=== PATIENT | male | born 1985 | race Caucasian/White ===

== ENCOUNTER 2024-08-24 04:11 | Inpatient (IN) | payer OTHER, SELFPAY ==
[2024-08-23 23:44] VITALS: BP 157/107
--- NOTE | 2024-08-24 01:36 | ED.GENMED ---
History of Present Illness
General
Chief Complaint: Skin Problem
Source: patient
Exam Limitations: none
Time Seen by Provider: 08/24/24 01:27
History of Present Illness
History of Present Illness:
See MDM
Past History
Past History
ED Past Medical History: Asthma
ED Past Surgical History: None
Social History
Tobacco: Non-smoker
Drug: IVDA (Former)
Phy Exam
Physical Exam
Physical Exam:
See MDM
Sepsis
Sepsis Screening
Sepsis Assessment: Sepsis Ruled Out
Sepsis Screen
Sepsis Screen: Sepsis Ruled Out
Date: 08/24/24
Time: 02:05
Course
Orders/Labs/Results
Orders:
Orders
08/23/24 23:50
IV Insert/Care/Rem.- Treatment PRN
Complete Blood Count/With Diff Urgent
Comprehensive Metabolic Panel Urgent
Lactic Acid Q4H
Comment: ON ICE, CANCEL 2ND ORDER IF FIRST LACTIC ACID LEVEL <2
Blood Culture Urgent
SUZANNE Source: Blood/Venous
Specimen Description:
08/23/24 23:51
Blood Culture Urgent
SUZANNE Source: Blood/Venous
Specimen Description:
08/24/24 01:34
Diphenhydramine [Benadryl] 25 mg IV NOW STA
Ketorolac [Toradol] 30 mg IV NOW STA
Piperacillin/Tazo 3.375 Gram [Zosyn] 3.375 gram in 50 ml IV NOW
08/24/24 01:35
Vancomycin [Vancocin] 2,000 mg 0.9% Sodium Chloride 500 ml [Nss] 500 ml IV NOW
08/24/24 03:50
Lactic Acid Q4H
Comment: ON ICE, CANCEL 2ND ORDER IF FIRST LACTIC ACID LEVEL <2
Abnormal Lab Results
08/24/24
01:35
WBC 11.0 H 10^3/uL
(4.8-10.8)
RBC 4.38 L 10^6/uL
(4.70-6.10)
Hgb 11.1 L g/dL
(13.0-18.0)
Hct 34.8 L %
(39.0-52.0)
MCV 79.5 L fL
(80.0-94.0)
MCH 25.3 L pg
(27.0-31.0)
MCHC 31.9 L g/dL
(33.0-37.0)
RDW 16.5 H %
(11.5-14.5)
Absolute Neuts (auto) 7.6 H 10^3/uL
(1.4-6.5)
Absolute Monos (auto) 1.1 H 10^3/uL
(0.1-0.6)
Lymphocytes % 17.5 L %
(20.5-51.1)
Monocytes % 10.3 H %
(1.7-9.3)
Glucose 104 H mg/dl
(70-99)
08/24/24 01:35
08/24/24 01:35
Vital Signs
Initial and Last Documented VS:
Initial Vital Signs
Temp Pulse Resp BP Pulse Ox
99.0 F 79 17 157/107 97
08/23/24 23:44 08/23/24 23:44 08/23/24 23:44 08/23/24 23:44 08/23/24 23:44
Last Documented Vital Signs
Temp Pulse Resp BP Pulse Ox
99.0 F 79 17 157/107 97
08/23/24 23:44 08/23/24 23:44 08/23/24 23:44 08/23/24 23:44 08/23/24 23:44
MDM/Problems Addressed
Differential Diagnosis Includes:
HPI and MDM Narrative:
38-year-old male presenting with right hand wound. Patient has a history of a somewhat chronic wound to his right hand from prior IV drug use. He states he has been dealing with bilateral swelling hands from lymphedema due to vascular
insufficiency related to his prior drug use. Over the past few days, the wound to his right hand has gotten significantly worse and painful.
On his exam, he does have enlarged hands consistent with his lymphedema. He has a large wound over the dorsum of his right hand and wrist
Given his drug history with the current state of his wound, will start vancomycin and Zosyn. Will give Toradol for pain and will avoid narcotics.
Physical exam
General: Mildly uncomfortable
HEENT: protecting airway
Neck: appears supple
CV: No evidence of cyanosis
Resp: No accessory muscle use
Abd: Non-distended
Extremities: Bilateral edematous hands. Large wound to the dorsal aspect of right wrist and right hand
Neuro: alert
Psych: Normal affect
Skin: Intact
Problems Addressed including Acute and Chronic Conditions affecting care:
1. Right hand wound
Acuity: acute
Prognosis: unstable
Details: Given his history, will start vancomycin and Zosyn.
Updates
Given the worsening hand wounds, will admit
Differential Diagnosis (but not limited to): Osteomyelitis, necrotic wound
Testing considered: X-ray
Drug therapy (if applicable): OTC meds, please see d/c instruction regarding Rx drugs
Amount and/or Complexity of Data Reviewed
Clinical info obtained from: Patient
External data reviewed: N/A
Labs I independently reviewed (but not limited to): Leukocytosis
Radiology: N/A
Pulse Ox: not hypoxic
EKG independently reviewed: N/A
Rose Grower: N/A
Critical Care: N/A
Risk of Complication:
Social Determinants of health: Good social support
Discussed with other providers: Hospitalist
Escalation of Care includes Admit/Obs: Given the significance of the hand wound, will admit
Occasional wrong word or 'sound a like' substitutions may have occurred due to the inherent limitations of voice recognition software. Read the chart carefully and recognize, using context, where substitutions have occurred.
*Critical Care Note
Total Time (30-74mins, 75-104mins- exclusive of procedures): Not Applicable
ED Attending Note
-
Portions of this chart may have been created with voice recognition software.� Occasional wrong word or��sound alike� substitutions may have occurred due to the inherent limitations of voice recognition software.
Discharge Plan
Departure
Patient Disposition: Admit
Date of Disposition: 08/24/24
Time of Disposition: 02:05
Admit to: Med/Surg
Presentation/result/management discussed w/ accepting MD/DO: Hospitalist
Discharge Problem:
Open wound, hand
Referrals:
NONE,* [Family Provider] -
Interventions
Interventions:
*Risk Screen - Suicide Last Done: 08/23/24 23:44
*General Assessment Last Done: 08/24/24 01:38
*Neglect/Abuse Screening Last Done: 08/24/24 01:38
*ED COVID-19 Vaccine History Last Done: 08/24/24 01:38
Discharge Date and Time
Print Language: KINYARWANDA
[2024-08-24 01:37] VITALS: BMI 24.7
[2024-08-24] MEDS: TORADOL 30 MG IV (01:44)
[2024-08-24 01:50] LABS: % Basophils 0.4 % (0-2); % Eosinophils 2.6 % (0-6); % Immature Granulocytes 0.3 % (0-0.5); % Lymphocytes 17.5 % (20.5-51.1); % Monocytes 10.3 % (1.7-9.3); % Neutrophils 68.9 % (42.2-75.2); Absolute Eosinophils 0.3 10^3/uL (0-0.7); Absolute Lymphocytes 1.9 10^3/uL (1.2-3.4); Absolute Monocytes 1.1 10^3/uL (0.1-0.6); Absolute Neutrophils 7.6 10^3/uL (1.4-6.5); Hematocrit 34.8 % (39.0-52.0); Hemoglobin 11.1 g/dL (13.0-18.0); Mean Corp Hgb Conc. 31.9 g/dL (33.0-37.0); Mean Corpuscular Hgb 25.3 pg (27.0-31.0); Mean Corpuscular Volume 79.5 fL (80.0-94.0); Nucleated Red Blood Cells % 0 % (-); Platelet Count 266 10^3/uL (130-400); Red Blood Cell Count 4.38 10^6/uL (4.70-6.10); Red Cell Dist. Width 16.5 % (11.5-14.5)
[2024-08-24 02:00] LABS: ALT (SGPT) 29 U/L (0-50); AST (SGOT) 30 U/L (17-59); Albumin 4.1 g/dl (3.5-5.0); Alkaline Phosphatase 93 U/L (38-126); Blood Urea Nitrogen 11 mg/dl (9-20); Calcium 8.8 mg/dl (8.4-10.2); Carbon Dioxide 26 mmol/L (22-30); Chloride 100 mmol/L (98-107); Estimated Creatinine Clearance 110 ml/min; Glucose 104 mg/dl (70-99); Sodium 136 mmol/L (135-145); Total Bilirubin 0.6 mg/dl (0.2-1.3); Total Protein 7.1 g/dl (6.3-8.2); eGFR > 60.00
[2024-08-24 02:01] LABS: Lactic Acid 0.9 mmol/L (0.7-2.0)
--- NOTE | 2024-08-24 02:18 | HPS.HSE ---
Family Physician
-
Family Physician: * NONE
Chief Complaint
-
Right hand swelling redness and pain
History of Present Illness
This is a 38-year-old with past medical history of IV drug use who reports he is currently off IV drugs and on methadone presents with acute episode of right hand swelling pain and erythema over the last 2 days.
Patient has history of IV drug use and has vascular insufficiency in the upper and lower extremities with chronic bilateral hand swelling which is currently treated with compression gloves. He reports prior ultrasounds negative for DVT in his
bilateral upper and lower extremities. He reports a chronic right upper extremity nonhealing wound which she has been at wound care clinic for blood did not continue. He performs his own dressings to take care of this wound. He also reports cyst
in the palm of his right hand that has been present for years. He stated that 2 days ago or over the sister ruptured internally. There was no open wound. Since then he has had more swelling erythema and pain in that hand. He denies having any
fevers. He denies any chills.
He denies any prior history of bloodstream infections.
Patient denies any external trauma, injuries, foreign body or animal bites.
In the emergency department he was afebrile, blood pressure was 137/100 with a pulse of 79 and was satting 97% on room air.
WBC was 11, hemoglobin 11 and platelet 266. Electrolytes BUN/creatinine were all within the normal range. Glucose was normal.
Medical History
Past Medical History
Past Medical History: Reports Other (History of IV drug use, bilateral upper and lower extremity venous insufficiency with chronic swelling)
Past Surgical History: Reports None
Social History
Tobacco: Smoker
Alcohol: None
Drug: Former User and IVDA
Personal: Single
Living: With Family
Family History
Family History: Not pertinent
Allergies / Home Medications
Allergies reflects when Allergies were last updated in [employer].
Home Medications with original date entered in [employer]
Allergy/Medication List:
Allergies
Allergy/AdvReac Type Severity Reaction Status Date / Time
No Known Allergies Allergy Verified 08/24/24 02:12
Home Medications
Mehtadone 180 mg PO DAILY 08/24/24
Review of Systems
-
History Source: Patient
Constitutional: Reports No Symptoms
EENT: Reports No Symptoms
Respiratory: Reports No Symptoms
Cardiac: Reports No Symptoms
Abdomen/GI: Reports No Symptoms
: Reports No Symptoms
Musculoskeletal: Reports Joint Pain and Joint Swelling
Skin: Reports No Symptoms
Neurological: Reports No Symptoms
Endocrine: Reports No Symptoms
Hematologic/Lymphatic: Reports No Symptoms
Psych: Reports No Symptoms
Physical Exam
Vital Signs
Vital Signs
Temp Pulse Resp BP Pulse Ox
99.0 F 79 17 157/107 97
08/23/24 23:44 08/23/24 23:44 08/23/24 23:44 08/23/24 23:44 08/23/24 23:44
Physical Exam
General: Well Developed and Pain
HEENT: NormoCephalic, Anicteric, Moist mucous membranes and Atraumatic
Respiratory: Clear
Cardiac: S1/S2 and Regular Rhythm
Breast: Deferred by me
GI: Soft, Non Tender, Non Distended and Normal Bowel Sounds
Rectal: Deferred by Provider
Genito-urinary: Deferred by me
Musculoskeletal: No Clubbing, No Cyanosis, Edema, Left Upper Extremity, Edema, Right Upper Extremity, Edema, Left Lower Extremity and Edema, Right Lower Extremity
Skin: Ulcers (Chronic nonhealing about 8 cm long open wound in the right upper extremity just proximal to the wrist. The diameter is about 4 cm. There is small amount of purulent covering over well-appearing subcutaneous tissue. No collection
noted. No deep infection noted.)
Neuro: AO x 3 and Nonfocal/grossly intact
Hematologic/Lymphatic: No Lymphadenopathy
Psych: Calm
Laboratory Results
-
08/24/24 01:35
08/24/24 01:35
Laboratory Results
Lactic Acid 0.9 mmol/L (0.7-2.0) 08/24/24 01:35
Total Bilirubin 0.6 mg/dl (0.2-1.3) 08/24/24 01:35
AST 30 U/L (17-59) 08/24/24 01:35
ALT 29 U/L (0-50) 08/24/24 01:35
Alkaline Phosphatase 93 U/L (38-126) 08/24/24 01:35
Data Reviewed
-
Lab Data: Labs Reviewed by me
Old Records: Reviewed
Impression/Plan
-
IMPRESSION:
Right hand swelling and erythema. Patient reports chronic cyst that ruptured internally. Exam shows profound hand edema. There is a nodule remaining but no clear evidence of abscess. The distal forearm has a non-healing wound which is possible
source of cellulitis. No bites, no trauma. Has reduced range of motion of all fingers.
PLAN:
1. Hand cellulitis - Superifical/deep cellutis of the right hand. No systemic signs at this time. No signs of sepsis or fasciitis. h/o IVDU.
- admit to med/surg
- blood cultures
- cover mrsa and pseudomonas, Vanc/Zosyn continued for now
- pain control
- hand xray to rule out foreign body
- elevated right hand
- ID consultation
- hand surgery consult, can see in am
- wound care consult
IVDU - On methadone, denies use in over 8 months.
- ecg for qtc
- continue methadone 180
DVT PPX - lovenox sq
Code status - Full code
[2024-08-24] MEDS: ZOSYN 50 IV ×3 (02:57→13:09)
[2024-08-24] MEDS: BENADRYL 25 MG IV (02:57)
[2024-08-24] MEDS: VANCOCIN 535 MG IV (03:52)
[2024-08-24 04:00] VITALS: BP 119/74
[2024-08-24 04:55] VITALS: BP 133/83; BMI 24.0
[2024-08-24 06:26] LABS: Hemoglobin 10.3 g/dL (13.0-18.0); Mean Corp Hgb Conc. 31.2 g/dL (33.0-37.0); Mean Corpuscular Hgb 25.2 pg (27.0-31.0); Mean Corpuscular Volume 80.9 fL (80.0-94.0); Mean Platelet Volume 9.8 fL (7.4-10.4); Platelet Count 222 10^3/uL (130-400); Red Blood Cell Count 4.08 10^6/uL (4.70-6.10); Red Cell Dist. Width 16.5 % (11.5-14.5); White Blood Cell Count 8.9 10^3/uL (4.8-10.8)
[2024-08-24 06:51] LABS: Blood Urea Nitrogen 9 mg/dl (9-20); Calcium 8.5 mg/dl (8.4-10.2); Carbon Dioxide 29 mmol/L (22-30); Chloride 100 mmol/L (98-107); Estimated Creatinine Clearance 110 ml/min; Glucose 84 mg/dl (70-99); Potassium 3.6 mmol/L (3.5-5.1); Sodium 137 mmol/L (135-145); eGFR > 60.00
[2024-08-24 07:30] VITALS: BP 113/76
--- NOTE | 2024-08-24 08:29 | W.PN.UPDATE ---
Update Note
Progress Note Update
Full orthopedic consult dictated:
Dx: Right hand painful cyst/cellulitis-improved on antibiotics, right hand/forearm large wound (chronic), bilateral upper/lower extremity venous insufficiency and prior IV drug use
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
upper/lower extremity venous insufficiency
Shared pictures with Dr Del Valle of patient's wound and hand. Nothing emergent for orthopedics to take care of at the moment. Continue to observe while on antibiotics. Wound over the dorsum of the wrist/distal forearm has been chronic for years.
Could consider plastics consult for further recommendations.
--- NOTE | 2024-08-24 09:31 | PHA.VAN.IN ---
Assessment
- Assessment
Renal Function: Appears similar to baseline
Concomitant Antimicrobials: piperacillin/tazobactam
AUC Dosing Plan
- Dosing Variables
Dosing Weight (kg): 71
Dosing CrCl (ml/min): 110
Vd coefficient (L/kg): 0.7
- Empiric Dosing
Initial / Loading Dose: 1750mg - 08/24 03:52
Maintenance Regimen: Vanc 1250mg Q12H starting at 1800
Estimated AUC (mcg*h/mL): 563
Estimated Peak (mcg*h/mL): 37
Estimated Trough (mcg/ml): 13.5
Estimated Half Life (H): 7.2
Given age and history of IV EMA, patient may have higher clearance than predicted above with population-based PK
- Monitoring
No levels ordered at this time: consider levels in next few days
Pharmacokinetics Vancomycin I
- -
Patient Age: 38
Patient Sex: Male
Vancomycin Day #: 1
Indication: Skin And Soft Tissue
Requesting Provider: Dr. Ruggiero
Pertinent Antimicrobial Allergies:
NKDA
Height / Weight:
Height 5 ft 8 in
Actual Weight 71.441 kg
Pertinent Past Medical History: IV EMA (methadone)
- Vital Signs / Lab Results
Temp Pulse Resp BP Pulse Ox
98.0 F 61 18 113/76 97
08/24/24 07:30 08/24/24 07:30 08/24/24 07:30 08/24/24 07:30 08/24/24 07:30
Lab Results - Hematology
08/24/24 08/24/24
01:35 06:12
WBC 11.0 H 8.9
Lab Results - Chemistry
08/24/24 08/24/24
01:35 06:12
BUN 11 9
Creatinine 0.9 0.9
Estimated Creat Clear 110 110
Albumin 4.1
08/24/24 08/24/24
01:35 03:50
Lactic Acid 0.9 Cancelled
--- NOTE | 2024-08-24 09:36 | W.PN.HOSP.TC ---
Today's Communication/Plan
-
see plan
Assessment / Plan
Assessment / Plan
IMPRESSION:
Right hand swelling and erythema. Patient reports chronic cyst that ruptured internally. Exam shows profound hand edema. There is a nodule remaining but no clear evidence of abscess. The distal forearm has a non-healing wound which is possible
source of cellulitis. No bites, no trauma. Has reduced range of motion of all fingers.
PLAN:
1. Hand cellulitis - Superifical/deep cellutis of the right hand. No systemic signs at this time. No signs of sepsis or fasciitis. h/o IVDU.
- admit to med/surg
- blood cultures
- cover mrsa and pseudomonas, Vanc/Zosyn continued for now
- pain control
- hand xray to rule out foreign body
- elevated right hand
- ID consultation
- hand surgery consult
- wound care consult
IVDU - On methadone, denies use in over 8 months.
- ecg for qtc
- continue methadone 180
DVT PPX - lovenox sq
Code status - Full code
Anticipated Discharge: 24 - 48 hours
Subjective/Interval History
-
Date of Service: August 24, 2024
denies pain
seen with wound care present
Objective Data
-
Labs:
Laboratory Results
08/24/24 08/24/24
01:35 06:12
WBC 11.0 H 8.9
Hgb 11.1 L 10.3 L
Hct 34.8 L 33.0 L
Plt Count 266 222
Sodium 136 137
Potassium 4.0 3.6
Chloride 100 100
Carbon Dioxide 26 29
BUN 11 9
Creatinine 0.9 0.9
Glucose 104 H 84
Calcium 8.8 8.5
Total Bilirubin 0.6
AST 30
ALT 29
Alkaline Phosphatase 93
Vital Signs:
Vital Signs
Temp Pulse Resp BP Pulse Ox
98.0 F 61 18 113/76 97
08/24/24 07:30 08/24/24 07:30 08/24/24 07:30 08/24/24 07:30 08/24/24 07:30
Review of Systems
-
History Source: Patient
All other systems: Reviewed and negative
Physical Exam
-
General: No Apparent Distress
HEENT: PERRLA
Respiratory: Clear to Auscultation; Negative Wheezes
Cardiac: Regular Rhythm and S1/S2
GI: Soft and Nontender
Musculoskeletal: Other (right forearm with wound; significant swelling right hand )
Skin: Warm and Dry
Neuro: AO x 3
Data Reviewed
-
Diagnostic Radiology: Report Reviewed by me
Labs: Labs Reviewed by me
--- NOTE | 2024-08-24 10:13 | WOUNDNOTE ---
R WRIST/FOREARM/HAND
--- NOTE | 2024-08-24 10:16 | WOUNDNOTE ---
[facility] RN note: Patient admitted with hand cellulitis. 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 Patient does his own wound care at home with Bacitracin ointment, gauze and Coban wraps every 2-3 days.
See H&P for complete history.
PMH: IV drug use currently off IV drugs, on Methadone, vascular insufficiency upper and lower extremities, lymphedema, chronic hand swelling, wears compression on hands and le's (Coban type wrap). He reports prior ultrasounds negative for DVT upper
and lower extremities as per H+P note. Chronic RUE and RLE wounds. R hand chronic cyst which recently ruptured internally as per H+P note.
Wound Location and type/assessment: Patient admitted with: Chronic full thickness R forearm and RLE wounds r/t venous insufficiency suspect from prior IV drug use. Wounds pink with several small purple ecchymotic moist areas R forearm wound. +Gross
edema R fingers/hand. +2-3 LE edema. +Palpable R radial and bilateral pedal pulses. Fingers and toes warm. Patient denies pain. He wears comfortable shoes at work and has slippers here.
Appetite: good.
Pressure redistribution devices in place: [employer]. Patient is mobile.
Plan: RUE and RLE dressing changed. RUE and LE's elevated on pillows. Dr. Dowling was in and evaluated patient during visit who approved local wound care and compression. Bilateral knee high Adrian wraps applied. Discussed with JOHNATHAN Harding.
Care plan to be updated and will follow as needed.
Recommend follow up at wound care center upon discharge.
[2024-08-24] MEDS: NICODERM TRANSDERMAL 21 MG TRANSDERM (10:23)
[2024-08-24] MEDS: METHADONE 100 MG/10 ML 118 MG PO (10:24)
--- NOTE | 2024-08-24 10:34 | CM ---
Pt seen bedside. Initial assessment completed. Admitted for right hand swelling redness and pain. Hx of IV drugs, currently do not use. Currently gets Methadone weekly OP.
Pt reports he lives w/ his father in a 2STH- no steps to enter the home. Pt is independent w/ ambulation, does not require any devices. Denies any DME use. Pt denies SNF/VN/PT hx.
Address, point of contact and insurance verified. Pt states he has [employer] insurance
PCP: Pt does not have a PCP at this time. CM provided residency clinic information
Pharmacy: Pt does not have any rx coverage. [facility] listed
IV and hand surg consulted
Plan: CM will cont to follow hospital course.
--- NOTE | 2024-08-24 10:38 | CON.ID ---
Consultation
-
Date/Time Consultation Requested: 08/24/24 4:37
Date/Time Consultation Performed: 08/24/24 10:38
Requesting Provider: Dr Ruggiero
Performing Provider: Dr Seymour
Reason for Consultation: hand cellulitis
Chief Complaint / Past History
Chief Complaint
redness and swelling of right hand
History of Present Illness
Mr Maldonado is 38 year old male with history of IVDU now in remission on methadone who presented here today for a two day history of right hand swelling. He has a chronic cyst within the right palm for years, reports it was delibertly ruptured
(without infliction of a wound) by his sister then developed progressive swelling and erythema over the next two days. No fevers or chills. Of note with vascular insufficiency and chronic bilateral hand swelling which is managed with compression
gloves. He has a chronic nonhealing wound of the right upper extremity which he follows at wound care for. No known history of bloodstream infection. No known foreign bodies.
Since arrival here he has been afebrile, bp stable, wbc initially 11 now 8.9, hgb 10.3, plt 222, no L shift, cr 0.9, na 137, normal LFTs, an Xray of the right hand was done - not yet read by radiology, blood cultures x2 are in progress and a MRSA
screen is in progress, patient seen by orthopedist PA no current plans for surgery, patient is currently on vancomycin and zosyn, ID is consulted for assistance with management.
Past History
Additional Past Medical History:
History of IV drug use, bilateral upper and lower extremity venous insufficiency with chronic swelling
Past Surgical History: None
Allergy History:
No Known Allergies Allergy (Verified 08/24/24 02:12)
Medications Reviewed: Yes
Social History
Tobacco: Smoker
Alcohol: None
Drug: Former User (IVDU)
Family History
Family History: Not Pertinent
Review of Systems
Review of Systems
General: Negative Fever or Chills
All systems: All other systems were reviewed and were negative
Vital Signs
Temp Pulse Resp BP Pulse Ox
98.0 F 61 18 113/76 97
08/24/24 07:30 08/24/24 07:30 08/24/24 07:30 08/24/24 07:30 08/24/24 07:30
Physical Exam
Physical Exam
Constitutional: No Acute Distress
Cardiovascular: Regular Rate and S1/S2; Negative Murmur or Rub
Pulmonary: Clear and Symmetric; Negative Wheezes, Rales or Rhonchi
Gastrointestinal: Soft, Non Tender, Non Distended and Normal Bowel Sounds
Extremities: Other (impressive swelling of the right hand and fingers, also with 1+ swelling of the L hand fingers. R palm warm, tenderness over a focal, fluctuant area)
Skin: Warm and Dry; Negative Rash or Jaundice
Lab / Diagnostic Study Results
08/24/24 06:12
08/24/24 06:12
Abs Immat Gran (auto) 0.0 10^3/uL (0-0.05) 08/24/24 01:35
Absolute Neuts (auto) 7.6 10^3/uL (1.4-6.5) H 08/24/24 01:35
Absolute Lymphs (auto) 1.9 10^3/uL (1.2-3.4) 08/24/24 01:35
Absolute Monos (auto) 1.1 10^3/uL (0.1-0.6) H 08/24/24 01:35
Absolute Basos (auto) 0.0 10^3/uL (0-0.2) 08/24/24 01:35
Immature Gran % 0.3 % (0-0.5) 08/24/24 01:35
Neutrophils % 68.9 % (42.2-75.2) 08/24/24 01:35
Lymphocytes % 17.5 % (20.5-51.1) L 08/24/24 01:35
Monocytes % 10.3 % (1.7-9.3) H 08/24/24 01:35
Eosinophils % 2.6 % (0-6) 08/24/24 01:35
Basophils % 0.4 % (0-2) 08/24/24 01:35
Lactic Acid Cancelled 08/24/24 03:50
Microbiology Results
Micro:
08/24/24 05:08 MRSA Screen - Pending
Nose
08/24/24 01:35 Blood Culture - Pending
Blood/Venous
08/24/24 01:35 Blood Culture - Pending
Blood/Venous
Assessment / Plan
Right Hand Cellulitis and edema
Ruptured Cyst
Chronic RUE wound
- no wound at the site of cellulitis
- chronic wound is healing with good granulation tissue, few spots of likely cauterization (patient states he does that himself), some slough on dressing; overall a well tended wound without overt signs of infection at this time
- edema of right hand is impressive, suspect he may have some disruption of his lymphatics related to the wound on his distal arm
- compression and elevation of the hand as much as tolerated - patient understands that 1) compression will cause increased drainage from his wound and 2) antibiotics will be much less effective without control of edema 3) dressing will loosen
through time and need to be reapplied
- ultrasound to assess for focal collection in the right plam
- continue vancomycin, stopped zosyn
- gave patient name of Dr ARTHUR Wolfe for outpatient plastics follow up for the chronic wound
[2024-08-24 15:14] VITALS: BP 128/61
--- NOTE | 2024-08-24 15:57 | PTCARENOTE ---
Patient did not tolerate individual finger compression applied by infectious disease. Complained of burning sensation after 20 minutes and removed himself. ID made aware. Patient agreeable to maintain elevation.
[2024-08-24] MEDS: VANCOCIN 275 MG IV (16:59)
[2024-08-24] MEDS: LOVENOX 40 MG SC (17:00)
[2024-08-24] MEDS: TORADOL 15 MG IV (18:17)
[2024-08-24] MEDS: BENADRYL 50 MG IV (18:43)
[2024-08-24 23:53] VITALS: BP 107/78
[2024-08-25] MEDS: BENADRYL 50 MG IV ×2 (03:20→18:19)
[2024-08-25] MEDS: TORADOL 15 MG IV (03:20)
[2024-08-25] MEDS: VANCOCIN 275 MG IV ×2 (05:43→18:15)
--- NOTE | 2024-08-25 05:48 | W.PN.UPDATE ---
Update Note
Progress Note Update
Patient was seen and examined this morning; currently on antibiotics and reports no severe changes in his status. He did have an ultrasound performed which showed a fluid collection but atypical in appearance for abscess. Pending imaging
evaluation by Dr. Del Valle but clinical presentation does not indicate surgical decompression indicated;
[2024-08-25 07:38] VITALS: BP 112/71
--- NOTE | 2024-08-25 09:03 | PHA.VAN.FU ---
Vancomycin Assessment / Plan
- Assessment
Renal Function: Stable
WBC's are: Trending Down
In the past 24 hrs, patient has been: Afebrile
- Dosing Plan
Continue: Vanc 1250mg Q12H
- Monitoring Plan
No level(s) ordered at this time: consider levels in next few days
- Follow Up
Pharmacy will continue to follow.
Vancomycin Follow UP
- -
Patient Age: 38
Patient Sex: Male
Vancomycin Day #: 2
Indication: Skin And Soft Tissue
Requesting Provider: Dr. Ruggiero / Dr. Seymour
Pertinent Antimicrobial Allergies:
NKDA
Height / Weight:
Height 5 ft 8 in
Actual Weight 71.441 kg
Pertinent Past Medical History: IV EMA (methadone)
- Vital Signs / Lab Results
Temp Pulse Resp BP Pulse Ox
98.2 F 66 20 112/71 96
08/25/24 07:38 08/25/24 07:38 08/25/24 07:38 08/25/24 07:38 08/25/24 07:38
Lab Results - Hematology
08/24/24 08/24/24
01:35 06:12
WBC 11.0 H 8.9
Lab Results - Chemistry
08/24/24 08/24/24
01:35 06:12
BUN 11 9
Creatinine 0.9 0.9
Estimated Creat Clear 110 110
Albumin 4.1
08/24/24 08/24/24
01:35 03:50
Lactic Acid 0.9 Cancelled
Microbiology Results
08/24/24 05:08 MRSA Screen - Final
Nose No Methicillin Resistant Staphylococcus aureus isolated.
08/24/24 01:35 Blood Culture - Preliminary
Blood/Venous No Growth in 24 hours- Final report to follow
08/24/24 01:35 Blood Culture - Preliminary
Blood/Venous No Growth in 24 hours- Final report to follow
[2024-08-25] MEDS: METHADONE 100 MG/10 ML 118 MG PO (09:43)
[2024-08-25] MEDS: NICODERM TRANSDERMAL 21 MG TRANSDERM (09:46)
--- NOTE | 2024-08-25 10:07 | W.PN.HOSP.TC ---
Today's Communication/Plan
-
IV Vanc
F/U specialist recommendations
Assessment / Plan
Assessment / Plan
IMPRESSION:
Right hand swelling and erythema. Patient reports chronic cyst that ruptured internally. Exam shows profound hand edema. There is a nodule remaining but no clear evidence of abscess. The distal forearm has a non-healing wound which is possible
source of cellulitis. No bites, no trauma. Has reduced range of motion of all fingers.
Hand X-Ray 08/24/24
IMPRESSION:
Large amount of generalized soft tissue swelling. No radiographic evidence to suggest osteomyelitis.
US 08/24/24
IMPRESSION: Within the right palm in the region of concern, within the subcutaneous soft tissues, there is a focal mass/complex collection, with no internal color flow. With a history of cellulitis, main differential considerations of complex
abscess and phlegmon. With echogenic central region, atypical appearance for abscess, but could possibly still represent a complex abscess.
PLAN:
1. Hand cellulitis - Superifical/deep cellutis of the right hand. No systemic signs at this time. No signs of sepsis or fasciitis. h/o IVDU.
- admit to med/surg
- blood cultures
- appreciate ortho and ID consults
- x-ray and US results above
- IV Vancomycin
-wound care
- F/U further specialist recommendations
IVDU - On methadone, denies use in over 8 months.
- ecg for qtc
- continue methadone 180
DVT PPX - lovenox sq
Code status - Full code
Anticipated Discharge: 24 - 48 hours
Subjective/Interval History
-
Date of Service: August 25, 2024
swelling of right hand remains significant
Objective Data
-
Vital Signs:
Vital Signs
Temp Pulse Resp BP Pulse Ox
98.2 F 66 20 112/71 96
08/25/24 07:38 08/25/24 07:38 08/25/24 07:38 08/25/24 07:38 08/25/24 07:38
I&O
08/24/24 08/25/24 08/26/24
06:59 06:59 06:59
Intake Total 1440 / 1440
Balance 1440 / 1440
Review of Systems
-
History Source: Patient
All other systems: Reviewed and negative
Physical Exam
-
General: No Apparent Distress
HEENT: PERRLA
Respiratory: Clear to Auscultation; Negative Wheezes
Cardiac: Regular Rhythm and S1/S2
GI: Soft and Nontender
Musculoskeletal: Other (right forearm with wound; significant swelling right hand )
Skin: Warm and Dry
Neuro: AO x 3
Psych: Calm
Data Reviewed
-
Diagnostic Radiology: Report Reviewed by me
Labs: Labs Reviewed by me
--- NOTE | 2024-08-25 11:28 | W.PN.ID1 ---
Date of Service
Date of Service: August 25, 2024
Today's Communication
- continue vancomycin today, added cefazolin
- tomorrow if stable physical exam findings or further improvement patient could be discharged with keflex 500 mg PO QID and doxycycline 100 mg PO BID to complete a 14 day course
- recommend follow up in the lymphedema clinic
Assessment / Plan
Right Hand Cellulitis and edema
Ruptured Cyst
Chronic RUE wound
- no wound at the site of cellulitis
- chronic wound is healing with good granulation tissue, few spots of likely cauterization (patient states he does that himself), some slough on dressing; overall a well tended wound without overt signs of infection at this time
- edema of right hand persists, he does have notably improved range of motion
- elevation of the hand as much as tolerated - patient understands that 1) compression will cause increased drainage from his wound and 2) antibiotics will be much less effective without control of edema
- not tolerating compression yet
- focal collection seen in the palm - however relatively small - <2 cm in two dimensions - antibiotic therapy may be sufficient; if relapse after completion of Rx then would recommend I&D
- continue vancomycin for today, added cefazolin
- tomorrow if stable physical exam findings or further improvement patient could be discharged with keflex 500 mg PO QID and doxycycline 100 mg PO BID to complete a 14 day course
- recommend follow up in the lymphedema clinic
- gave patient name of Dr ARTHUR Wolfe for outpatient plastics follow up for the chronic wound
Chronic Hep C
- reports 2 years of sobriety from IVUD, is employed and owns a home
- patient is a very difficult stick related to prior IVDU - he has required a midline here to obtain routine lab work
- patient known to have Hep C, has been unable to get a genotype outpatient due to severe difficulties obtaining blood outpatient - reports his provider at the methadone clinic will treat him and has instructed him that whenever he was inpatient
with IV access to request the lab work; while it is unusual to get the screening inpatient, I believe that in this isolated instance it is warranted
- Hep A/B/C and HIV serologies
- Hep C quant NAAT
- Hep C genotype
- LFTs done earlier this admission - on file
- follow up with his provider at the methadone clinic
Chief Complaint
-: Cellulitis
Subjective / Review of Systems
afebrile
bp stable
tolerated compression of the digits about 20 minutes yesterday
Vital Signs / Physical Exam
Vital Signs
Vital Signs
Temp Pulse Resp BP Pulse Ox
98.2 F 66 20 112/71 96
08/25/24 07:38 08/25/24 07:38 08/25/24 07:38 08/25/24 07:38 08/25/24 07:38
Physical Exam
Constitutional: No Acute Distress
Cardiovascular: Regular Rate and S1/S2; Negative Murmur or Rub
Pulmonary: Clear and Symmetric; Negative Wheezes or Rales
Gastrointestinal: Soft, Non Tender, Non Distended and Normal Bowel Sounds
Extremities: Other (2+ edema of the right hand now with about 50% flexion and extension of the digits; erythema resolved, fluctuant area remains, mildly tender; L hand with 1+ edema - at his baseline)
Skin: Warm and Dry; Negative Rash or Jaundice
Objective Data
Lab Data
Lab Results
08/24/24 06:12
08/24/24 06:12
Estimated Creat Clear 110 ml/min 08/24/24 06:12
Lactic Acid Cancelled 08/24/24 03:50
Total Bilirubin 0.6 mg/dl (0.2-1.3) 08/24/24 01:35
AST 30 U/L (17-59) 08/24/24 01:35
ALT 29 U/L (0-50) 08/24/24 01:35
Alkaline Phosphatase 93 U/L (38-126) 08/24/24 01:35
Most recent labs reviewed.
US of the hand Within the right palm in the region of concern, within the subcutaneous soft tissues, there is a focal mass/complex collection, with no internal color flow. With a history of cellulitis, main differential considerations of complex
abscess and phlegmon. With echogenic central region, atypical appearance for abscess, but could possibly still represent a complex abscess. This finding measures 2.8 cm transverse by 1.8 cm craniocaudal by 1.1 cm AP.
Micro Results:
08/24/24 05:08 MRSA Screen - Final
Nose No Methicillin Resistant Staphylococcus aureus isolated.
08/24/24 01:35 Blood Culture - Preliminary
Blood/Venous No Growth in 24 hours- Final report to follow
08/24/24 01:35 Blood Culture - Preliminary
Blood/Venous No Growth in 24 hours- Final report to follow
--- NOTE | 2024-08-25 11:51 | WOUNDNOTE ---
[facility] RN note: Alexander texted Anthony Ortega PA asking if outpatient hand therapist recommended. Derrek responded patient to follow up with Dr. Del Valle next week after discharge and referral to hand therapy maybe after that. Updated discharge
instructions.
--- NOTE | 2024-08-25 12:22 | WOUNDNOTE ---
[facility] RN note: t/c Spoke with Dr. Seymour re: compression for R hand/fingers. Dr. Seymour stated she attempting to apply small mandi wraps on his fingers yesterday however, he had them removed after awhile d/t burning sensation. Patient's been
elevating his RUE on pillows. Dr. Seymour stated his R finger ROM has improved from yesterday. Plan is to continue RUE elevation, follow up with hand surgeon. Dr. Seymour approved adding 'make appointment with vascular surgeon Dr. Chao or
associate' in the discharge instructions. Discharge instructions updated.
[2024-08-25] MEDS: ANCEF 10 IV ×2 (13:59→20:40)
[2024-08-25 14:00] LABS: HIV Combo Negative (Negative)
[2024-08-25 14:08] LABS: Hepatitis A Antibody, Total Negative (Negative); Hepatitis B Core Ab, Total Negative (Negative); Hepatitis B Surface Antibody Negative; Hepatitis C Antibody Reactive (Negative)
[2024-08-25 14:55] LABS: Hepatitis B Surface Antigen Negative (Negative)
[2024-08-25 15:28] VITALS: BP 128/80
[2024-08-25 15:40] VITALS: BP 143/95; BP_SYST 76
[2024-08-25 16:35] VITALS: BP 155/57; BP_SYST 76
--- NOTE | 2024-08-25 17:07 | W.PN.UPDATE ---
Update Note
Progress Note Update
US guided aspiration of right palmar fluid collection performed, yielding 2 cc of pus. Sent for C+S.
[2024-08-25] MEDS: LOVENOX SC ×2 (18:15→18:24)
[2024-08-25] MEDS: FLUSH (NSS) 2 FLUSH IV (18:16)
[2024-08-25 23:55] VITALS: BP 117/73
[2024-08-26] MEDS: TORADOL 15 MG IV ×2 (02:57→11:58)
[2024-08-26] MEDS: BENADRYL 50 MG IV (03:01)
[2024-08-26] MEDS: VANCOCIN 275 MG IV (05:23)
[2024-08-26] MEDS: ANCEF 10 IV (05:24)
[2024-08-26 07:45] VITALS: BP 125/73
--- NOTE | 2024-08-26 08:15 | PHA.VAN.FU ---
Vancomycin Assessment / Plan
- Assessment
Renal Function: Stable
WBC's are: Trending Down
In the past 24 hrs, patient has been: Afebrile
Concomitant Antimicrobials: ANCEF
- Dosing Plan
Continue: 1250MG Q12H
- Monitoring Plan
No level(s) ordered at this time: CONSIDER FOR TOMORROW
- Follow Up
Pharmacy will continue to follow.
Vancomycin Follow UP
- -
Patient Age: 38
Patient Sex: Male
Vancomycin Day #: 3
Indication: Skin And Soft Tissue
Requesting Provider: Dr. Ruggiero / Dr. Seymour
Pertinent Antimicrobial Allergies:
NKDA
Height / Weight:
Height 5 ft 8 in
Actual Weight 71.441 kg
Pertinent Past Medical History: IV EMA (methadone)
- Vital Signs / Lab Results
Temp Pulse Resp BP Pulse Ox
98.7 F 61 18 117/73 98
08/25/24 23:55 08/25/24 23:55 08/25/24 23:55 08/25/24 23:55 08/25/24 23:55
Lab Results - Hematology
08/24/24 08/24/24
01:35 06:12
WBC 11.0 H 8.9
Lab Results - Chemistry
08/24/24 08/24/24
01:35 06:12
BUN 11 9
Creatinine 0.9 0.9
Estimated Creat Clear 110 110
Albumin 4.1
08/24/24 08/24/24
01:35 03:50
Lactic Acid 0.9 Cancelled
Microbiology Results
08/24/24 01:35 Blood Culture - Preliminary
Blood/Venous No Growth in 48 hours- Final report to follow
08/24/24 01:35 Blood Culture - Preliminary
Blood/Venous No Growth in 48 hours- Final report to follow
08/25/24 16:31 Gram Stain - Preliminary
Fluid
08/24/24 05:08 MRSA Screen - Final
Nose No Methicillin Resistant Staphylococcus aureus isolated.
[2024-08-26] MEDS: NICODERM TRANSDERMAL 21 MG TRANSDERM (08:35)
[2024-08-26] MEDS: METHADONE 100 MG/10 ML 118 MG PO (08:36)
--- NOTE | 2024-08-26 10:35 | W.PN.HOSP.TC ---
Today's Communication/Plan
-
Ok for DC
Assessment / Plan
Assessment / Plan
IMPRESSION:
Right hand swelling and erythema. Patient reports chronic cyst that ruptured internally. Exam shows profound hand edema. Chronic wound right forearm.
Hand X-Ray 08/24/24
IMPRESSION:
Large amount of generalized soft tissue swelling. No radiographic evidence to suggest osteomyelitis.
US 08/24/24
IMPRESSION: Within the right palm in the region of concern, within the subcutaneous soft tissues, there is a focal mass/complex collection, with no internal color flow. With a history of cellulitis, main differential considerations of complex
abscess and phlegmon. With echogenic central region, atypical appearance for abscess, but could possibly still represent a complex abscess.
Hand cellulitis - Superficial/deep cellulitis of the right hand.
- admitted to med/surg
- blood cultures negative
- appreciate ortho and ID consults
- s/p IR guided aspiration evening 08/25 with 2cc pus - growing gram + cocci in clusters
- x-ray and US results above
- IV Vancomycin and IV Cefazolin --> transition to 12 more days Doxycycline and Keflex
- wound care
IVDU - On methadone, denies use in over 8 months.
- ecg for qtc
- continue methadone 180
DVT PPX - lovenox sq
Code status - Full code
Anticipated Discharge: Today
Subjective/Interval History
-
Date of Service: August 26, 2024
swelling is stable
no fevers/chills
Objective Data
-
Vital Signs:
Vital Signs
Temp Pulse Resp BP Pulse Ox
97.9 F 62 14 125/73 98
08/26/24 07:45 08/26/24 07:45 08/26/24 07:45 08/26/24 07:45 08/26/24 07:45
I&O
08/25/24 08/26/24 08/27/24
06:59 06:59 06:59
Intake Total 1440 / 1440 474 / 474
Balance 1440 / 1440 474 / 474
Review of Systems
-
History Source: Patient
All other systems: Reviewed and negative
Physical Exam
-
General: No Apparent Distress
HEENT: PERRLA
Respiratory: Clear to Auscultation; Negative Wheezes
Cardiac: Regular Rhythm and S1/S2
GI: Soft and Nontender
Musculoskeletal: Other (right forearm with wound; significant swelling right hand )
Skin: Warm and Dry
Neuro: AO x 3
Psych: Calm
Data Reviewed
-
Diagnostic Radiology: Report Reviewed by me
Labs: Labs Reviewed by me
--- NOTE | 2024-08-26 10:59 | W.DS.TRANS ---
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
-
Discharge Instructions:
Discharge Diagnosis/Procedures Right hand cellulitis
Diet Regular
Activity As tolerated
Driving Restrictions As prior to admission
Bathing Restrictions None
Instructions:
Stand-Alone Forms:
Changes to Home Medications: Yes
Discharge Medications:
DC Medications w/original date entered in [employer]
Mehtadone 180 mg PO DAILY Opioid use disorder 08/24/24
cephalexin 500 mg capsule 500 mg PO Q6H 12 days #48 caps 08/26/24
doxycycline hyclate 100 mg capsule 100 mg PO BID #12 caps 08/26/24
Home Medication Changes
Addition of 12 more days of Keflex and Doxycycline
Pending Results: Yes
Additional Pending Results:
final fluid culture
--- NOTE | 2024-08-26 11:03 | W.PN.ID1 ---
Date of Service
Date of Service: August 26, 2024
Today's Communication
- patient can be discharged with keflex 500 mg PO QID and doxycycline 100 mg PO BID to complete a 14 day course
Assessment / Plan
Right Hand Cellulitis and edema
Ruptured Cyst
Chronic RUE wound
- will follow up aspiration culture - likely s aureus
- patient anxious for discharge today, reasonable, I will follow up cultures - encouraged ongoing compression, elevation, range of motion exercises and to return in any progression of symptoms, new fevers etc
- patient can be discharged with keflex 500 mg PO QID and doxycycline 100 mg PO BID to complete a 14 day course
- recommend follow up in the lymphedema clinic
- gave patient name of Dr ARTHUR Wolfe for outpatient plastics follow up for the chronic wound
Chronic Hep C
- reports 2 years of sobriety from IVUD, is employed and owns a home
- patient is a very difficult stick related to prior IVDU - he has required a midline here to obtain routine lab work
- patient known to have Hep C, has been unable to get a genotype outpatient due to severe difficulties obtaining blood outpatient - reports his provider at the methadone clinic will treat him and has instructed him that whenever he was inpatient
with IV access to request the lab work; while it is unusual to get the screening inpatient, I believe that in this isolated instance it is warranted
- Hep A/B/C and HIV serologies
- hep C reactive
- needs hep A and B vaccines outpatient - follow up with provider at methadone clinic
- HIV negative
- Hep C quant NAAT - pending
- Hep C genotype - pending
- LFTs done earlier this admission - on file
- follow up with his provider at the methadone clinic
Chief Complaint
-: Cellulitis
Subjective / Review of Systems
afebrile
bp stable
US guided aspiration yielded 2 ccs of puss
requesting discharge
Vital Signs / Physical Exam
Vital Signs
Vital Signs
Temp Pulse Resp BP Pulse Ox
97.9 F 62 14 125/73 98
08/26/24 07:45 08/26/24 07:45 08/26/24 07:45 08/26/24 07:45 08/26/24 07:45
Physical Exam
Constitutional: No Acute Distress
Cardiovascular: Regular Rate and S1/S2; Negative Murmur or Rub
Pulmonary: Clear and Symmetric; Negative Wheezes or Rales
Gastrointestinal: Soft, Non Tender, Non Distended and Normal Bowel Sounds
Extremities: Other (right hand remains swollen, fluctuant lesion resolved - kettle tender in the region, no erythema, range of motion diminished from his baseline, similar to yesterday, 2+ edema; elevated when I enter the room)
Skin: Warm and Dry; Negative Rash or Jaundice
Objective Data
Lab Data
Lab Results
08/24/24 06:12
08/24/24 06:12
Estimated Creat Clear 110 ml/min 08/24/24 06:12
Lactic Acid Cancelled 08/24/24 03:50
Total Bilirubin 0.6 mg/dl (0.2-1.3) 08/24/24 01:35
AST 30 U/L (17-59) 08/24/24 01:35
ALT 29 U/L (0-50) 08/24/24 01:35
Alkaline Phosphatase 93 U/L (38-126) 08/24/24 01:35
Most recent labs reviewed.
Micro Results:
08/24/24 01:35 Blood Culture - Preliminary
Blood/Venous No Growth in 48 hours- Final report to follow
08/24/24 01:35 Blood Culture - Preliminary
Blood/Venous No Growth in 48 hours- Final report to follow
08/25/24 16:31 Body Fluid Culture - Pending
Fluid Gram Stain - Preliminary
08/24/24 05:08 MRSA Screen - Final
Nose No Methicillin Resistant Staphylococcus aureus isolated.
Care Review
Plan reviewed with: Physician (Dr Nitesh pollard)
--- NOTE | 2024-08-26 11:50 | W.PN.UPDATE ---
Update Note
Progress Note Update
Luis is a 38-year-old male who presented to [facility] complaining of pain and swelling in his right hand. He does have chronic wounds of the dorsum of his hand and wrist, but this was new. Ultrasound of the right hand did
demonstrate a hypoechoic region that was aspirated under the guidance of interventional radiology. 2 cc of purulent material was aspirated. This was sent for culture and is currently growing staph coccus aureus. Appreciate IDs recommendations for
both IV antibiotics and switch to oral antibiotics, likely doxycycline going forward. He is eager to be discharged from the hospital today as he has a family event he would like to get to. He was encouraged to perform range of motion exercises as
well as wrapped the hand to reduce the edema. He was provided with a PT/OT prescription, which was placed in his chart for him to call on Wednesday to initiate outpatient PT for edema reduction. He will follow-up in the office with Dr. Del Valle in 7
to 10 days.
--- NOTE | 2024-08-26 12:48 | CM ---
Patient discharged to home today
follows up with c
was previously given resources for residency clinic as no he has no PCP
PLAN: Home, no needs
dad to transport
--- NOTE | 2024-08-26 14:43 | W.DCSUMMARY ---
Discharge Summary
Discharge Data
Date of Admission: 08/24/24
Date of Discharge: 08/26/24
-
Pending Results: No
Hospital Course
Discharging Physician : Dr. Leela Dowling
Disposition : Home
Principal Discharge diagnosis : Right hand abscess and Cellulitis
Hospital Course :
Mr. Luis Maldonado is a 38 yo man with hx IV drug use, currently on methadone, presents with acute episode of right hand swelling pain and erythema over the last 2 days.
In the emergency department he was afebrile, blood pressure was 137/100 with a pulse of 79 and was satting 97% on room air. WBC was 11, hemoglobin 11 and platelet 266. Electrolytes BUN/creatinine were all within the normal range. His hand was
markedly swollen; chronic wound right forearm present without e/o infection.
He was started on IV antibiotics and admitted to medicine with ID and Ortho consulting. He was maintained on IV antibiotics. US with area concerning for small abcess. IR consulted for aspiration and 2cc pus removed with gram stain showing staph
aureus (final speciation pending). Per ID, he is discharged on 12 additional days of Keflex and Doxycycline. He will follow up with Dr. Del Valle as outpatient.
Per Ortho, he was taught ROM hand exercises and is provided with a PT/OT prescription to help with edema reduction.
Time spent on discharge was 35 minutes.
Important imaging findings :
Hand X-Ray 08/24/24
IMPRESSION:
Large amount of generalized soft tissue swelling. No radiographic evidence to suggest osteomyelitis.
US 08/24/24
IMPRESSION: Within the right palm in the region of concern, within the subcutaneous soft tissues, there is a focal mass/complex collection, with no internal color flow. With a history of cellulitis, main differential considerations of complex
abscess and phlegmon. With echogenic central region, atypical appearance for abscess, but could possibly still represent a complex abscess.
Procedure findings :
Discharge Plan
-
Patient Disposition: Home (Routine Discharge)
Discharge Diagnosis/Procedures: Right hand cellulitis
Diet: Regular
Activity: As tolerated
Driving Restrictions: As prior to admission
Bathing Restrictions: None
Activity Restrictions/Additional Instructions:
Wound Care Instructions
DIMITRIE, RLE wounds -Rinse with saline while removing dressing, apply Vashe soaked gauze x 3 minutes as needed for odor, apply silver alginate or Xeroform gauze, ABD pad, secure with Kerlix wrap, change daily and prn drainage. Or resume prior wound care.
Moisture lotion daily as needed for dry skin le's.
Elevate RUE on pillows.
Elevate Le's frequently.
Bilateral knee high compression with Adrian wraps as tolerated (re-wrap daily) or resume prior compression wraps as tolerated.
Follow up with orthopedic hand surgeon Dr. Jas Del Valle next week, call for appointment [phone].
Make appointment with Vascular surgeon Dr. Chao or associate [phone].
Follow up with wound child care group leader or at wound care center call for an appointment.
Referrals:
NONE,* [Family Provider] -
Jas Del Valle MD [Active] - in one to two weeks
Iman Seymour MD [Active] - in one to two weeks
Additional Discharge Medication Instructions: Please see a PCP within the next week
Continue prior methadone dose (you received 118mg in hospital).
Doxycycline Precautions
�� Take with at least 6 oz H2O
�� Take with food but no calcium containing products like milk or cheese
�� Ideally you would not take any multivitamins, calcium, magnesium or zinc containing products.
�� If you must take one of these products make sure that the pills are by at least 3 hours.
�� Sit up for at least 30 minutes after each dose to prevent heartburn.
�� Your skin will be more sensitive to the sun while you are on doxycycline - it will be very easy for you to get a sunburn.
Prescriptions:
New
cephalexin 500 mg capsule
500 mg PO Q6H 12 Days Qty: 48 0RF
doxycycline hyclate 100 mg capsule
100 mg PO BID Qty: 12 0RF
Continued
Mehtadone
180 mg PO DAILY
Discharge Orders:
Discharge Patient (As Directed); Ordered 08/26/24
Ordered By: Leela Dowling
Discharge Date and Time
Discharge Date/Time: 08/26/24 12:50
Print Language: ICELANDIC
== END 2024-08-26 12:50 | disposition home or self-care (01) | DRG 603 ==
LOC: 4 EAST ACU 04:11
PROVIDERS: Emergency Medicine; Radiology Vascular & Interventional Radiology; ADMITTING PHYSICIAN Internal Medicine; ATTENDING PHYSICIAN Student in an Organized Health Care Education/Training Program; CONSULT PHYSICIAN Orthopaedic Surgery Hand Surgery; EMERGENCY PHYSICIAN Student in an Organized Health Care Education/Training Program; OTHER PHYSICIAN Student in an Organized Health Care Education/Training Program
PROC: 0J9J3ZX Drainage of Right Hand Subcutaneous Tissue and Fascia, Percutaneous Approach, Diagnostic (ICD-10-PCS; 2024-08-25)
DX: L03.113 Cellulitis of right upper limb (principal); L02.511 Cutaneous abscess of right hand; F11.20 Opioid dependence, uncomplicated; D23.61 Other benign neoplasm of skin of right upper limb, including shoulder; B95.61 Methicillin susceptible Staphylococcus aureus infection as the cause of diseases classified elsewhere; B18.2 Chronic viral hepatitis C; R60.0 Localized edema; J45.909 Unspecified asthma, uncomplicated; F19.11 Other psychoactive substance abuse, in remission; I87.2 Venous insufficiency (chronic) (peripheral); F17.200 Nicotine dependence, unspecified, uncomplicated; M79.89 Other specified soft tissue disorders; L98.491 Non-pressure chronic ulcer of skin of other sites limited to breakdown of skin
CPT/HCPCS: 10160; 73120; 76882; 76942; 80048; 80053; 83605; 85025; 85027; 86704; 86706; 86708; 86803; 87015; 87040; 87070; 87147; 87186; 87205; 87340; 87389; 87522; 87902; 93005; 96374; 99285